=== PATIENT | female | born 1965 | race Caucasian/White ===

== ENCOUNTER 2016-08-01 20:47 | Emergency (ER) | payer MEDICAID, OTHER, BC ==
[~2016-08-01] VITALS: Ht 154.9 cm; Wt 49.4 kg
[2016-08-01 20:57] VITALS: BP 123/94; PULSE 102; RESP 18; TEMP 97.6; O2SAT 100
[2016-08-01] MEDS ORDERED: CYCLOBENZAPRINE HCL 10 MG TABLET (FLEXERIL) PO ONE (22:00)
[2016-08-01] MEDS ORDERED: HYDROcodone/ACETAMIN 7.5-325 MG TAB PO ONE (22:00)
[2016-08-01] MEDS ORDERED: DIPHENHYDRAMINE INJ 50 MG/ML VIAL IM ONE (23:15)
[2016-08-01] MEDS ORDERED: MORPHINE SULFATE 10 MG/ML VIAL IM ONE (23:15)
[2016-08-02 00:01] VITALS: BP 124/76; PULSE 88; RESP 18; TEMP 97.6; O2SAT 100
== END 2016-08-02 00:01 | disposition home or self-care (01) ==
LOC: SED 20:47
DX: S16.1XXA Strain of muscle, fascia and tendon at neck level, initial encounter (principal); C18.9 Malignant neoplasm of colon, unspecified; V89.2XXA Person injured in unspecified motor-vehicle accident, traffic, initial encounter; Y93.89 Activity, other specified; Y99.8 Other external cause status; Y92.89 Other specified places as the place of occurrence of the external cause
CPT/HCPCS: 72125; 96372; 99284; J1200; J2270

== ENCOUNTER 2016-10-26 11:35 | Emergency (ER) | payer BC, MEDICAID, OTHER ==
[~2016-10-26] VITALS: Ht 165.1 cm; Wt 45.4 kg
[2016-10-26 11:42] VITALS: BP_SYST 119
[2016-10-26 12:29] LABS: BASOPHILS % (AUTO) 0.5 % (0.0-2.0); EOSINOPHILS % (AUTO) 0.9 % (0.0-4.0); HEMATOCRIT 29.6 % (36-48); HEMOGLOBIN 9.2 g/dL (12.0-16.0); LYMPHOCYTES % (AUTO) 28.8 % (20.5-51.5); MEAN CORPUSCULAR HEMOGLOBIN 24 pg (27-31); MEAN CORPUSCULAR HGB CONC 31 % (32-36); MEAN CORPUSCULAR VOLUME 77 fL (79.0-98.0); MONOCYTES # (AUTO) 0.2 K/uL (0.0-1.0); MONOCYTES % (AUTO) 6.7 % (1.7-9.3); NEUTROPHILS # (AUTO) 2.1 K/uL (1.8-7.7); NEUTROPHILS % (AUTO) 63.1 % (40.0-70.0); PLATELET COUNT (AUTO) 301 K/uL (130-430); RED BLOOD CELL COUNT(AUTO) 3.84 MIL/uL (4.2-6.2); RED CELL DISTRIBUTION WIDTH 15.1 % (9.0-15.0); WHITE BLOOD COUNT (AUTO) 3.3 K/uL (4.8-10.8)
[2016-10-26 12:41] LABS: ANION GAP 9 (5-15); CALCIUM 8.6 mg/dL (8.4-11.0); CHLORIDE 102 mmol/L (98-107); CREATININE 0.93 mg/dL (0.55-1.30); GLUCOSE 103 mg/dL (70-99); POTASSIUM 3.4 mmol/L (3.5-5.1); SODIUM SERUM 135 mmol/L (136-145); UREA NITROGEN, BLOOD 10 mg/dL (8-21)
[2016-10-26 12:43] LABS: GFR AFRICAN AMERICAN 82 mL/min (>90)
[2016-10-26 12:46] LABS: ALANINE AMINOTRANSFERASE 22 U/L (12-78); ASPARTATE AMINOTRANSFERASE 22 U/L (10-37); TOTAL BILIRUBIN 0.4 mg/dL (0.0-1.0); TOTAL PROTEIN, SERUM 7.5 g/dL (6.4-8.3)
[2016-10-26 12:48] LABS: ALCOHOL, BLOOD < 3 mg/dL (<10)
[2016-10-26] MEDS: KETOROLAC TROMETHAMINE 30 MG VIAL IVP ONE (13:00)
[2016-10-26] MEDS: NACL 0.9% 1,000 ML IV SCH (13:00)
[2016-10-26 13:06] VITALS: BP_SYST 119
== END 2016-10-26 13:07 | disposition home or self-care (01) ==
LOC: SED 11:35
DX: R55 Syncope and collapse (principal); Z85.038 Personal history of other malignant neoplasm of large intestine
CPT/HCPCS: 36415; 70450; 80053; 84484; 85025; 93005; 99285; G0482

== ENCOUNTER 2017-01-02 08:48 | Emergency (ER) | payer MEDICAID ==
[~2017-01-02] VITALS: Ht 154.9 cm; Wt 53.5 kg
[2017-01-02 08:48] VITALS: BP_SYST 139
[2017-01-02] MEDS ORDERED: IBUPROFEN 600 MG TABLET PO ONE (09:45)
[2017-01-02 10:15] VITALS: BP_SYST 128
== END 2017-01-02 10:15 | disposition home or self-care (01) ==
LOC: SED 08:48
DX: S52.511A Displaced fracture of right radial styloid process, initial encounter for closed fracture (principal); Z85.038 Personal history of other malignant neoplasm of large intestine; Z98.84 Bariatric surgery status; W01.0XXA Fall on same level from slipping, tripping and stumbling without subsequent striking against object, initial encounter; Y93.89 Activity, other specified; Y92.89 Other specified places as the place of occurrence of the external cause; Y99.8 Other external cause status
CPT/HCPCS: 73090; 99284

== ENCOUNTER 2017-05-06 01:09 | Emergency (ER) | payer MEDICAID ==
[~2017-05-06] VITALS: Ht 154.9 cm; Wt 50.8 kg
[2017-05-06 01:13] VITALS: BP_SYST 125
[2017-05-06] MEDS ORDERED: CYCLOBENZAPRINE HCL 10 MG TABLET (FLEXERIL) PO ONE (04:15)
[2017-05-06] MEDS ORDERED: ACETAMINOPHEN/CODEINE 300 MG-30 MG TABLET PO ONE (04:15)
[2017-05-06 04:20] VITALS: BP_SYST 127
== END 2017-05-06 04:20 | disposition home or self-care (01) ==
LOC: SED 01:09
DX: S16.1XXA Strain of muscle, fascia and tendon at neck level, initial encounter (principal); S43.402A Unspecified sprain of left shoulder joint, initial encounter; S80.01XA Contusion of right knee, initial encounter; Z85.038 Personal history of other malignant neoplasm of large intestine; W01.0XXA Fall on same level from slipping, tripping and stumbling without subsequent striking against object, initial encounter; Y93.89 Activity, other specified; Y92.89 Other specified places as the place of occurrence of the external cause; Y99.8 Other external cause status
CPT/HCPCS: 72125-TC; 73564; 99284

== ENCOUNTER 2017-06-28 10:26 | Emergency (ER) | payer MEDICAID ==
[~2017-06-28] VITALS: Ht 154.9 cm; Wt 45.4 kg
[2017-06-28 10:31] VITALS: BP_SYST 125
--- NOTE | 2017-06-28 10:36 | NUR ---
Patient to ER bed 04 to gown for evaluation. Side rails up. Report given to Imer FAARH.
--- NOTE | 2017-06-28 10:40 | NUR ---
PT PRESENTS TO ED W/ MULTIPLE COMPLAINTS.PT HAS NO ACUTE DISTRESS NOTED AT THIS TIME.
--- NOTE | 2017-06-28 11:45 | NUR ---
PT TO RESTROOM STEADY GAIT W/O ASSIST FOR URINE SPECIMEN COLLECTION
[2017-06-28 12:18] LABS: BILIRUBIN,URINE NEGATIVE (NEGATIVE); BLOOD, URINE NEGATIVE (NEGATIVE); COLOR,URINE YELLOW (YELLOW); GLUCOSE,URINE NEGATIVE (NEGATIVE); KETONES,URINE NEGATIVE (NEGATIVE); LEUKOCYTE ESTERASE ,URINE 2+ (NEGATIVE); NITRITE, URINE POSITIVE (NEGATIVE); PROTEIN URINE NEGATIVE (NEGATIVE)
[2017-06-28 12:25] LABS: CLARITY/URINE HAZY (CLEAR)
[2017-06-28 12:28] LABS: RBC,URINE 0-3 /HPF (0-3)
[2017-06-28 12:29] LABS: BACTERIA,URINE MANY /HPF (None Seen)
[2017-06-28 13:10] VITALS: BP_SYST 125
--- NOTE | 2017-06-28 13:10 | NUR ---
Patient given written and verbal discharge instructions and verbalizes understanding. ER MD discussed with patient the results and treatment provided. Patient in stable condition. ID arm band removed. IV catheter removed intact and dressing applied, no active bleeding. Rx of albuterol,robitussin,bactrim given. Patient educated on pain management and to follow up with PMD. Pain Scale 0. Opportunity for questions provided and answered.
--- NOTE | 2017-06-28 13:41 | NUR ---
Per Dr. Tolliver's order Tamiflu 75mg PO Bid called into [facility] which is the patient's perferred pharmacy.
--- NOTE | 2017-06-28 14:18 | NUR ---
Christin [email or web address] in EDM - 06/28/17 at 1419 by [email or web address] patient stated Pharmacy did not recieve call for Tamiful. Second called made for tamiful 75mg po bid x 5 days per Pietro's order
--- NOTE | 2017-06-28 14:20 | NUR ---
patient stated Pharmacy did not recieve call for Tamiful. Second called made for tamiful 75mg po bid x 5 days per Pietro's order
== END 2017-06-28 13:10 | disposition home or self-care (01) ==
LOC: SED 10:26
DX: J06.9 Acute upper respiratory infection, unspecified (principal); N39.0 Urinary tract infection, site not specified; J45.909 Unspecified asthma, uncomplicated; Z85.038 Personal history of other malignant neoplasm of large intestine; Z98.84 Bariatric surgery status
CPT/HCPCS: 36415; 71010; 81000-TC; 86710; 87086; 99285

== ENCOUNTER 2017-07-06 21:11 | Emergency (ER) | payer MEDICAID ==
[~2017-07-06] VITALS: Ht 154.9 cm; Wt 45.4 kg
[2017-07-06 21:14] VITALS: BP_SYST 147
[2017-07-06] MEDS ORDERED: CYCLOBENZAPRINE HCL 10 MG TABLET (FLEXERIL) PO ONE (23:15)
[2017-07-06] MEDS ORDERED: KETOROLAC TROMETHAMINE 30 MG VIAL IM ONE (23:15)
[2017-07-06] MEDS ORDERED: ACETAMINOPHEN/CODEINE 300 MG-30 MG TABLET PO ONE (23:45)
[2017-07-07 00:30] VITALS: BP_SYST 147
== END 2017-07-07 00:30 | disposition home or self-care (01) ==
LOC: SED 21:11
DX: M25.512 Pain in left shoulder (principal); J45.909 Unspecified asthma, uncomplicated; Z85.038 Personal history of other malignant neoplasm of large intestine
CPT/HCPCS: 96372; 99283; J1885

== ENCOUNTER 2017-11-25 18:20 | Emergency (ER) | payer MEDICAID ==
[~2017-11-25] VITALS: Ht 154.9 cm; Wt 45.4 kg
[2017-11-25 18:24] VITALS: BP_SYST 138
[2017-11-25 19:00] VITALS: BP_SYST 138
== END 2017-11-25 19:00 | disposition home or self-care (01) ==
LOC: SED 18:20
DX: L25.9 Unspecified contact dermatitis, unspecified cause (principal); J45.909 Unspecified asthma, uncomplicated; R03.0 Elevated blood-pressure reading, without diagnosis of hypertension; Z85.038 Personal history of other malignant neoplasm of large intestine; Z98.84 Bariatric surgery status
CPT/HCPCS: 99283

== ENCOUNTER 2017-11-27 15:24 | Emergency (ER) | payer MEDICAID ==
[~2017-11-27] VITALS: Ht 154.9 cm; Wt 45.4 kg
[2017-11-27 15:29] VITALS: BP_SYST 137
[2017-11-27] MEDS ORDERED: DIPHENHYDRAMINE HCL 50 MG CAPSULE PO ONE (16:00)
[2017-11-27 17:14] VITALS: BP_SYST 130
== END 2017-11-27 17:14 | disposition home or self-care (01) ==
LOC: SED 15:24
DX: F41.0 Panic disorder [episodic paroxysmal anxiety] (principal); J45.909 Unspecified asthma, uncomplicated; Z85.038 Personal history of other malignant neoplasm of large intestine; Z98.84 Bariatric surgery status
CPT/HCPCS: 99284; Q0163

== ENCOUNTER 2017-11-28 10:18 | Emergency (ER) | payer MEDICAID ==
[~2017-11-28] VITALS: Ht 154.9 cm; Wt 45.4 kg
[2017-11-28 10:18] VITALS: BP_SYST 117
[2017-11-28 12:30] VITALS: BP_SYST 115
== END 2017-11-28 12:30 | disposition home or self-care (01) ==
LOC: SED 10:18
DX: S60.022A Contusion of left index finger without damage to nail, initial encounter (principal); S90.02XA Contusion of left ankle, initial encounter; W19.XXXA Unspecified fall, initial encounter; Y93.89 Activity, other specified; Y92.89 Other specified places as the place of occurrence of the external cause; Y99.8 Other external cause status; J45.909 Unspecified asthma, uncomplicated; Z85.038 Personal history of other malignant neoplasm of large intestine
CPT/HCPCS: 99284

== ENCOUNTER 2018-03-30 11:36 | Emergency (ER) | payer MEDICAID ==
[~2018-03-30] VITALS: Ht 154.9 cm; Wt 45.4 kg
[~2018-03-30 11:36] MED LIST: LORA-258 PO
[2018-03-30 11:46] VITALS: BP_SYST 138
[2018-03-30] MEDS ORDERED: IBUPROFEN 600 MG TABLET PO ONE (12:30)
[2018-03-30 13:21] VITALS: BP_SYST 138
== END 2018-03-30 13:20 | disposition home or self-care (01) ==
LOC: SED 11:36
DX: M65.332 Trigger finger, left middle finger (principal); J45.909 Unspecified asthma, uncomplicated; R03.0 Elevated blood-pressure reading, without diagnosis of hypertension; Z85.038 Personal history of other malignant neoplasm of large intestine; Z98.84 Bariatric surgery status
CPT/HCPCS: 73140-TC; 99284

== ENCOUNTER 2018-05-06 21:39 | Emergency (ER) | payer MEDICAID ==
[~2018-05-06] VITALS: Ht 154.9 cm; Wt 45.4 kg
[2018-05-06 21:45] VITALS: BP_SYST 124
[2018-05-06 23:15] LABS: BILIRUBIN,URINE NEGATIVE (NEGATIVE); BLOOD, URINE NEGATIVE (NEGATIVE); CLARITY/URINE CLEAR (CLEAR); COLOR,URINE YELLOW (YELLOW); GLUCOSE,URINE NEGATIVE (NEGATIVE); KETONES,URINE NEGATIVE (NEGATIVE); LEUKOCYTE ESTERASE ,URINE 1+ (NEGATIVE); NITRITE, URINE NEGATIVE (NEGATIVE); PH,URINE 5.5 (5.0-8.0); PROTEIN URINE NEGATIVE (NEGATIVE); UROBILINOGEN,URINE 0.2 (0.2-1.0)
[2018-05-06 23:40] LABS: BACTERIA,URINE FEW /HPF (None Seen); RBC,URINE 0-3 /HPF (0-3)
[2018-05-07] MEDS ORDERED: KETOROLAC TROMETHAMINE 30 MG VIAL IM ONE (00:15)
== END 2018-05-07 00:45 | disposition left against medical advice (07) ==
LOC: SED 21:39
DX: M54.6 Pain in thoracic spine (principal); J45.909 Unspecified asthma, uncomplicated; Z85.038 Personal history of other malignant neoplasm of large intestine
CPT/HCPCS: 81000; 81025; 87086; 96372; 99284; J1885

== ENCOUNTER 2018-05-14 13:22 | Emergency (ER) | payer MEDICAID ==
[~2018-05-14] VITALS: Ht 154.9 cm; Wt 45.4 kg
[2018-05-14 13:27] VITALS: BP_SYST 128
--- NOTE | 2018-05-14 13:43 | NUR ---
Patient placed in room 8, assumed care.
--- NOTE | 2018-05-14 13:45 | NUR ---
Patient arrived via POV, ambulatory with steady gait, and alert and oriented. Patient has many complaints, including: headache, congestion, rash, sneezing, backache, infrequent non-productive cough, and diarrhea. Patient denies nausea, vomiting, fall, and trauma. Patient has 9/10 pain to back and 7/10 pain to anterior forehead. Patient has had congestions, sneezing, and rash for 2 days, denies fever. Diarrhea occurred x2 for 2 days.
--- NOTE | 2018-05-14 13:55 | NUR ---
ER at bedside examining patient.
[2018-05-14] MEDS ORDERED: KETOROLAC TROMETHAMINE 30 MG VIAL IM ONE (14:30)
--- NOTE | 2018-05-14 14:45 | NUR ---
diPatient given written and verbal discharge instructions and verbalizes understanding. ER MD discussed with patient the results and treatment provided. Patient in stable condition. ID arm band removed. Rx of motrin and hydrocortisone given. Patient educated on pain management and to follow up with PMD. Pain Scale 3/10. Opportunity for questions provided and answered.
[2018-05-14 15:48] VITALS: BP_SYST 128
== END 2018-05-14 14:45 | disposition home or self-care (01) ==
LOC: SED 13:22
DX: S40.861A Insect bite (nonvenomous) of right upper arm, initial encounter (principal); S20.462A Insect bite (nonvenomous) of left back wall of thorax, initial encounter; G44.209 Tension-type headache, unspecified, not intractable; F41.9 Anxiety disorder, unspecified; J45.909 Unspecified asthma, uncomplicated; Z85.038 Personal history of other malignant neoplasm of large intestine; W57.XXXA Bitten or stung by nonvenomous insect and other nonvenomous arthropods, initial encounter; Y93.89 Activity, other specified; Y92.89 Other specified places as the place of occurrence of the external cause; Y99.8 Other external cause status
CPT/HCPCS: 96372; 99283; J1885

== ENCOUNTER 2018-07-11 14:52 | Emergency (ER) | payer MEDICAID ==
[~2018-07-11] VITALS: Ht 154.9 cm; Wt 52.2 kg
[2018-07-11 14:57] VITALS: BP_SYST 125
[2018-07-11 15:35] LABS: BILIRUBIN,URINE NEGATIVE (NEGATIVE); BLOOD, URINE TRACE (NEGATIVE); CLARITY/URINE CLEAR (CLEAR); COLOR,URINE YELLOW (YELLOW); GLUCOSE,URINE NEGATIVE (NEGATIVE); KETONES,URINE NEGATIVE (NEGATIVE); LEUKOCYTE ESTERASE ,URINE TRACE (NEGATIVE); NITRITE, URINE NEGATIVE (NEGATIVE); PH,URINE 5.5 (5.0-8.0); PROTEIN URINE NEGATIVE (NEGATIVE); UROBILINOGEN,URINE 0.2 (0.2-1.0)
[2018-07-11 15:37] LABS: BACTERIA,URINE FEW /HPF (None Seen); RBC,URINE 0-3 /HPF (0-3); WBC,URINE 0-3 /HPF (0-3)
[2018-07-11 16:16] VITALS: BP_SYST 128
== END 2018-07-11 16:16 | disposition home or self-care (01) ==
LOC: SED 14:52
DX: K59.00 Constipation, unspecified (principal); F41.9 Anxiety disorder, unspecified; J45.909 Unspecified asthma, uncomplicated; Z85.038 Personal history of other malignant neoplasm of large intestine; Z98.84 Bariatric surgery status
CPT/HCPCS: 71045; 74021; 81000-TC; 99284

== ENCOUNTER 2018-07-17 20:17 | Emergency (ER) | payer MEDICAID ==
[~2018-07-17] VITALS: Ht 154.9 cm; Wt 49.9 kg
[2018-07-17 20:35] VITALS: BP_SYST 115
[2018-07-17] MEDS ORDERED: KETOROLAC TROMETHAMINE 30 MG VIAL IVP ONE (21:15)
[2018-07-17] MEDS ORDERED: NACL 0.9% 1,000 ML IV ONE (21:15)
[2018-07-17 21:45] LABS: BILIRUBIN,URINE NEGATIVE (NEGATIVE); BLOOD, URINE NEGATIVE (NEGATIVE); CLARITY/URINE CLEAR (CLEAR); COLOR,URINE YELLOW (YELLOW); GLUCOSE,URINE NEGATIVE (NEGATIVE); KETONES,URINE NEGATIVE (NEGATIVE); LEUKOCYTE ESTERASE ,URINE NEGATIVE (NEGATIVE); NITRITE, URINE NEGATIVE (NEGATIVE); PH,URINE 5.5 (5.0-8.0); PROTEIN URINE NEGATIVE (NEGATIVE); UROBILINOGEN,URINE 0.2 (0.2-1.0)
[2018-07-17 22:22] LABS: BASOPHILS # (AUTO) 0.1 K/uL (0.0-0.2); BASOPHILS % (AUTO) 1.2 % (0.0-2.0); EOSINOPHILS # (AUTO) 0.2 K/uL (0.0-0.4); EOSINOPHILS % (AUTO) 2.8 % (0.0-4.0); HEMATOCRIT 29.4 % (36-48); HEMOGLOBIN 9.2 g/dL (12.0-16.0); LYMPHOCYTES # (AUTO) 1.9 K/uL (1.0-5.5); LYMPHOCYTES % (AUTO) 33.1 % (20.5-51.5); MEAN CORPUSCULAR HEMOGLOBIN 23 pg (27-31); MEAN CORPUSCULAR HGB CONC 31 % (32-36); MEAN CORPUSCULAR VOLUME 75 fL (79.0-98.0); MONOCYTES # (AUTO) 0.5 K/uL (0.0-1.0); MONOCYTES % (AUTO) 9.2 % (1.7-9.3); NEUTROPHILS # (AUTO) 2.9 K/uL (1.8-7.7); NEUTROPHILS % (AUTO) 53.7 % (40.0-70.0); PLATELET COUNT (AUTO) 401 K/uL (130-430); RED BLOOD CELL COUNT(AUTO) 3.93 MIL/uL (4.2-6.2); RED CELL DISTRIBUTION WIDTH 16.1 % (9.0-15.0); WHITE BLOOD COUNT (AUTO) 5.6 K/uL (4.8-10.8)
[2018-07-17 22:41] LABS: PROTHROMBIN TIME 10.4 SECS (9.5-12.5)
[2018-07-17 22:46] LABS: CALCIUM 8.4 mg/dL (8.4-11.0); CREATININE 0.79 mg/dL (0.55-1.30); POTASSIUM 3.7 mmol/L (3.5-5.1)
[2018-07-17 22:51] LABS: ALBUMIN 3.4 g/dL (3.4-4.8); TOTAL BILIRUBIN 0.2 mg/dL (0.0-1.0)
[2018-07-17] MEDS ORDERED: LACTULOSE 20 GM/30 ML UDC PO ONE (23:15)
[2018-07-17 23:50] VITALS: BP_SYST 126
== END 2018-07-17 23:50 | disposition home or self-care (01) ==
LOC: SED 20:17
DX: K59.00 Constipation, unspecified (principal); M79.642 Pain in left hand; R03.0 Elevated blood-pressure reading, without diagnosis of hypertension; F41.9 Anxiety disorder, unspecified; J45.909 Unspecified asthma, uncomplicated; Z85.038 Personal history of other malignant neoplasm of large intestine; Z98.84 Bariatric surgery status
CPT/HCPCS: 36415; 71045; 73130; 74176; 80053; 81003; 83605; 84484; 85025; 85610; 85730; 87040; 87086; 93005; 96374; 99284; J1885; J7030

== ENCOUNTER 2020-12-08 03:30 | Emergency (ER) | payer MEDICAID, SELFPAY ==
[~2020-12-08] VITALS: Ht 154.9 cm; Wt 59.0 kg
[2020-12-08 03:40] VITALS: BP_SYST 136
[2020-12-08 06:05] LABS: BASOPHILS # (AUTO) 0.1 K/uL (0.0-0.2); EOSINOPHILS # (AUTO) 0.5 K/uL (0.0-0.4); EOSINOPHILS % (AUTO) 9.6 % (0.0-4.0); HEMATOCRIT 39.2 % (36-48); HEMOGLOBIN 12.9 g/dL (12.0-16.0); LYMPHOCYTES # (AUTO) 1.4 K/uL (1.0-5.5); LYMPHOCYTES % (AUTO) 26.9 % (20.5-51.5); MEAN CORPUSCULAR HEMOGLOBIN 32 pg (27-31); MEAN CORPUSCULAR HGB CONC 33 % (32-36); MEAN CORPUSCULAR VOLUME 98 fL (79.0-98.0); MONOCYTES # (AUTO) 0.5 K/uL (0.0-1.0); NEUTROPHILS # (AUTO) 2.9 K/uL (1.8-7.7); NEUTROPHILS % (AUTO) 53.5 % (40.0-70.0); PLATELET COUNT (AUTO) 205 K/uL (130-430); RED BLOOD CELL COUNT(AUTO) 4.02 MIL/uL (4.2-6.2); RED CELL DISTRIBUTION WIDTH 12.7 % (9.0-15.0); WHITE BLOOD COUNT (AUTO) 5.4 K/uL (4.8-10.8)
[2020-12-08 06:18] LABS: CALCIUM 8.2 mg/dL (8.4-11.0); CREATININE 0.84 mg/dL (0.55-1.30); POTASSIUM 3.8 mmol/L (3.5-5.1)
[2020-12-08 06:24] LABS: ALBUMIN 3.5 g/dL (3.4-4.8); TOTAL BILIRUBIN 0.4 mg/dL (0.0-1.0)
[2020-12-08] MEDS ORDERED: BENZ-16 PO (06:42)
[2020-12-08 08:10] VITALS: BP_SYST 136
== END 2020-12-08 08:10 | disposition home or self-care (01) ==
LOC: SED 03:30
DX: R05 Cough (principal); R53.83 Other fatigue; E11.9 Type 2 diabetes mellitus without complications; J45.909 Unspecified asthma, uncomplicated; Z20.822 Contact with and (suspected) exposure to COVID-19
CPT/HCPCS: 36415; 71045; 80053; 85025; 86710; 99284

== ENCOUNTER 2021-01-18 15:32 | Emergency (ER) | payer MEDICAID, SELFPAY ==
[~2021-01-18] VITALS: Ht 154.9 cm; Wt 59.0 kg
[2021-01-18 15:32] VITALS: BP_SYST 121
[~2021-01-18 15:32] MED LIST changes: +BENZ-16 PO
[2021-01-18] MEDS ORDERED: IBUPROFEN 800 MG TABLET PO ONE (16:15)
[2021-01-18] MEDS ORDERED: IBUP-1969 PO (16:40)
[2021-01-18 17:00] VITALS: BP_SYST 121
== END 2021-01-18 17:01 | disposition home or self-care (01) ==
LOC: SED 15:32
DX: M72.2 Plantar fascial fibromatosis (principal); E11.9 Type 2 diabetes mellitus without complications; J45.909 Unspecified asthma, uncomplicated; Z79.899 Other long term (current) drug therapy
CPT/HCPCS: 99283

== ENCOUNTER 2021-08-17 21:34 | Emergency (ER) | payer MEDICAID ==
[~2021-08-17] VITALS: Ht 154.9 cm; Wt 56.7 kg
[~2021-08-17 21:34] MED LIST changes: +IBUP-1969 PO
[2021-08-17 21:40] VITALS: BP_SYST 153
[2021-08-18 01:56] VITALS: BP_SYST 134
[2021-08-18] MEDS ORDERED: KETOROLAC TROMETHAMINE 60 MG/2 ML VIAL IM ONE (02:30)
[2021-08-18 03:05] LABS: BASOPHILS % (AUTO) 0.9 % (0.0-2.0); EOSINOPHILS # (AUTO) 0.2 K/uL (0.0-0.4); EOSINOPHILS % (AUTO) 3.9 % (0.0-4.0); HEMATOCRIT 40.1 % (36-48); HEMOGLOBIN 13.2 g/dL (12.0-16.0); LYMPHOCYTES # (AUTO) 1.8 K/uL (1.0-5.5); LYMPHOCYTES % (AUTO) 35.8 % (20.5-51.5); MEAN CORPUSCULAR HEMOGLOBIN 31 pg (27-31); MEAN CORPUSCULAR HGB CONC 33 % (32-36); MEAN CORPUSCULAR VOLUME 96 fL (79.0-98.0); MONOCYTES # (AUTO) 0.5 K/uL (0.0-1.0); MONOCYTES % (AUTO) 10.2 % (1.7-9.3); NEUTROPHILS # (AUTO) 2.5 K/uL (1.8-7.7); NEUTROPHILS % (AUTO) 49.2 % (40.0-70.0); PLATELET COUNT (AUTO) 224 K/uL (130-430); WHITE BLOOD COUNT (AUTO) 5.1 K/uL (4.8-10.8)
[2021-08-18 03:39] LABS: CALCIUM 8.3 mg/dL (8.4-11.0); CREATININE 0.69 mg/dL (0.55-1.30); POTASSIUM 3.6 mmol/L (3.5-5.1)
[2021-08-18 03:50] LABS: ALBUMIN 3.6 g/dL (3.4-4.8); TOTAL BILIRUBIN 0.2 mg/dL (0.0-1.0)
== END 2021-08-18 05:01 | disposition home or self-care (01) ==
LOC: SED 21:34
DX: R06.02 Shortness of breath (principal); M54.50 Low back pain, unspecified; J45.909 Unspecified asthma, uncomplicated; E11.9 Type 2 diabetes mellitus without complications; Z79.899 Other long term (current) drug therapy
CPT/HCPCS: 36415; 71045; 80053; 83880; 84484; 85025; 85379; 93005; 96372; 99285; J1885